=== PATIENT | male | born 1990 | race Caucasian/White ===

== ENCOUNTER 2021-07-23 17:30 | Observation (INO) | payer BC ==
--- OUTSIDE RECORDS SUMMARY | 2021-07-23 18:28 | XMS REPORT | Continuity of Care Document ---
:1990 Author Organization [facility] Address [address] [place] [address] Dr. Mclain [address] [place] [id number] Care Team Providers Name Role Phone THERESA Attending Clinician Unavailable AFTAB Attending Clinician Unavailable BILLY Attending Clinician Unavailable Payers Payer Name Policy Type Policy Number Effective Date Expiration Date Yony cavanaugh [employer]BST[employer] PPO [id number] 2019 00:00:00 Problems This patient has no known problems. Allergies, Adverse Reactions, Alerts This patient has no known allergies or adverse reactions. Medications This patient has no known medications. Procedures This patient has no known procedures. Encounters Start End Encounter Admission Attending Care Care Encounter Source Date/Time Date/Time Type Type Clinicians Facility Department ID 2021-06-14 Outpatient THERESA [facility] [id number] [place] 01:04:25 [facility] 2021-04-05 Outpatient [facility] [id number] [place] 08:07:38 [facility] 2021-03-29 Outpatient [facility] [id number] [place] 09:51:44 [facility] 2021-03-27 [facility] [id number] [place]:35 [facility] 2021-03-26 Outpatient [facility] [id number] [place] 10:18:23 [facility] 2021-03-26 [facility] [id number] [place] 08:27:29 [facility] 2021-03-26 [facility] [id number] [place] 08:10:41 [facility] Results This patient has no known results.
[2021-07-23] MEDS ORDERED: MORPHINE 2 MG/ML SYR IV PRN (18:43)
[2021-07-23] MEDS ORDERED: ONDANSETRON 4 MG/2 ML VIAL IV PRN (18:43)
[2021-07-23] MEDS: NA CHLORIDE 0.9% 1,000 ML IV SCH (19:51)
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
[2021-07-23 21:52] LABS: Urine Appearance CLEAR (Clear); Urine Bilirubin NEGATIVE (Negative); Urine Blood NEGATIVE (Negative); Urine Color YELLOW (Yellow); Urine Glucose NEGATIVE (Negative); Urine Protein NEGATIVE (Negative); Urine Specific Gravity >=1.030 (1.005-1.030); Urine Urobilinogen 0.2 mg/dL (0.2-1.0); Urine pH 7.5 (5.0-7.0)
[2021-07-23 21:55] LABS: Urine Microscopic Reflex NO UMIC
[2021-07-24] MEDS: PIPER TAZO 3.375 GM in NA CHLORIDE 0.9% 100 ML IV SCH ×3 (00:02→16:26)
[2021-07-24 00:56] VITALS: BMI 28.7
[2021-07-24] MEDS: NA CHLORIDE 0.9% 1,000 ML IV SCH ×2 (05:31→15:48)
[2021-07-24 06:10] LABS: Absolute Lymphocytes (CBC) 1.7 K/uL (0.7-4.9); Hematocrit 42.8 % (39.6-49.0); Lymphocytes % 17.7 % (15.3-44.8); MPV 7.3 fL (7.6-11.3); RBC Red Blood Cell Count 4.44 M/uL (4.33-5.43)
--- NOTE | 2021-07-24 06:26 | P.PN ---
Date of Service: 07/24/21 Subjective: Patient seen postoperatively Reports doing well, some mild soreness/discomfort into the abdomen No nausea/vomiting, tolerated p.o. Passing flatus, urinating without issue No shortness of breath ROS: 10 point ROS as noted above, otherwise negative Physical exam GEN: Alert, oriented, NAD HEENT: Normal conjunctiva, sclera anicteric CV: Regular rate and rhythm, no edema Pulm: Nonlabored respirations on room air ABD: Soft, minimal discomfort with palpation, surgical dressing C/C/I Neuro: Normal speech, normal affect Problem List acute calculus cholecystitis Enteritis Admitted to general surgery, s/p lap cholecystectomy this morning Pain control and antibiotics per surgery Seems to be doing well postoperatively Vitals stable DVT PPx: lovenox Code: Full Dispo: Anticipate DC in the next 1-2 days Time Spent Managing Pts Care (In Minutes): 25
[2021-07-24 06:35] LABS: Albumin 3.4 g/dL (3.4-5.0); Bilirubin Total 0.5 mg/dL (0.2-1.0); Potassium 4.2 mmol/L (3.5-5.1)
[2021-07-24] MEDS ORDERED: Ringers Lactate 1,000 ML IV ONE ×2 (07:49→11:13)
[2021-07-24] MEDS ORDERED: INFLUENZA VACCINE (for 6+ mo) 0.5 ML DOSE IMVAC ONE (08:00)
[2021-07-24] MEDS ORDERED: PNEUMOCOCCAL VACCINE 0.5 ML IMVAC ONE (08:00)
[2021-07-24] MEDS ORDERED: propofoL 200 MG/20 ML VIAL IV ONE (08:26)
[2021-07-24] MEDS ORDERED: FENTANYL CITR 250 MCG/5 ML ONE (08:27)
[2021-07-24] MEDS ORDERED: MIDAZOLAM HCL 2 MG/2 ML INJ ONE (08:27)
[2021-07-24] MEDS ORDERED: ROCURONIUM 50 MG/5 ML VIAL IV ONE (08:27)
[2021-07-24] MEDS ORDERED: dexAMETHasone 10 MG/ML VIAL ONE (08:27)
[2021-07-24] MEDS ORDERED: ONDANSETRON 4 MG/2 ML VIAL ONE ×2 (08:28→11:27)
[2021-07-24] MEDS ORDERED: BUPIVACAINE 0.25% PF 10 ML VIAL ONE (08:35)
[2021-07-24] MEDS ORDERED: KETOROLAC 30 MG/ML INJ ONE (10:01)
[2021-07-24] MEDS ORDERED: GLYCOPYRROLATE 0.2 MG/ML SYR ONE (10:03)
[2021-07-24] MEDS ORDERED: EPHEDRINE SULF 50 MG/ML VIAL ONE (10:07)
[2021-07-24] MEDS ORDERED: Phenylephrine HCl 10 MG/ML 1 ML VIAL ONE (10:08)
--- NOTE | 2021-07-24 10:44 | P.OP ---
Preoperative diagnosis: Acute cholecystitis Postoperative diagnosis: Acute cholecystitis Primary procedure: Laparoscopic cholecystectomy Secondary procedure: ICG cholangiography Other procedure(s): Peritoneal washings with biopsy Anesthesia: GETA Estimated blood loss: <10cc Specimen: Gallbadder, Peritoneal Fluid Findings: Significant white fluid in abdomen, did't appear to be abscess, lymphatic ? Complications: None Transferred to: Recovery Room Condition: Good
[2021-07-24] MEDS: HYDROMORPHONE HCL 1 MG/ML INJ ONE ×2 (11:25→11:45)
[2021-07-24] MEDS ORDERED: HYDROCODONE/APAP 5/325 MG TAB PO PRN (11:45)
--- NOTE | 2021-07-24 14:00 | OP ---
Date of Procedure: 07/24/2021 Surgeon: Rich Alejandra MD, Preoperative Diagnosis: Acute calculous cholecystitis. Postoperative Diagnosis: Acute calculous cholecystitis. Procedures Performed: 1.Laparoscopic cholecystectomy. 2.Indocyanine green cholangiography intraoperatively. 3.Peritoneal washings with biopsy. Anesthesia: General endotracheal plus local with 0.25% Marcaine. Estimated Blood Loss: Less than 10 cc. Specimen: Gallbladder and peritoneal fluid. Findings: Significant white fluid evident in the peritoneum concerning for a possible lymph leak. D id not appear abscess in origin in etiology. Bright white sterile in appearance throughout the entir e abdominal compartment and covering many segments of small bowel. Complications: None. Disposition: Patient was transferred to recovery room in good condition. Procedure In Detail: After informed consent was obtained, patient was brought to the operating room, prepped and draped in the usual sterile fashion. After adequate anesthesia was achieved, an area of the supraumbilical skin was anesthetized with 0.25% Marcaine, sharply incised. A 5 mm 0-degree opti meghan trocar was introduced in the abdomen without complication. Insufflation obtained to 15 mmHg at t his time. There was no injury to vital structures upon entry into the abdomen. Patient was position ed in head up position. 2 additional trocars were placed, 1 in the epigastrium, 1 in the right upper quadrant. Both of these were similarly anesthetized and sharply incised. A 5 mm trocar was placed under direct visualization without complication. The umbilical trocar was then up-sized to 12 mm und er direct visualization without complication. The colon was noted to be tented over the anterior corey face of the gallbladder precluding visualization of the gallbladder. At this point, I had to take do wn the adhesions doing a laparoscopic adhesiolysis on the anterior surface of the liver edge to expos e the gallbladder. This was done using a combination of blunt dissection, electrocautery to remove t he transverse colon off the anterior surface of the liver, which is tended to the anterior abdominal wall from thick adhesive scars. Additional white murky fluid was evident throughout the abdominal co mpartment and particularly evident on many segments of small bowel with a significant accumulation of this murky fluid, which was bright white in appearance concerning for lymphocytic fluid in appearanc e. However, I turned my attention back to the gallbladder and after removing the omental attachments off the anterior surface of the gallbladder using a combination of electrocautery and blunt dissecti on, I continued to dissect down to expose the cystic duct and cystic artery. ICG cholangiography was performed after skeletonizing these 2 structures, identified as the cystic duct and cystic artery. I could see the confluence of the common duct, cystic duct junction and it was not within the dissect ion plane. As such, I opted to place a double titanium clips on the proximal side of both the cystic duct and cystic artery and singly on the distal side of cystic duct and cystic artery. The Endo She ars was then brought in and used to ligate the above 2 structures. The gallbladder was then removed from the hepatic fossa without evidence of complication, placed in EndoCatch bag, removed the umbilic al trocar. I inspected the hepatic fossa. Minimal hemostatic measures required. At this point, the clips were found to be in good anatomic position. At this point, I put a trap on and suctioned out some of the white murky fluid with minimal amount of irrigation from the right upper quadrant. I the n sent this off for pathologic examination, specimen analysis. At this point, I turned my attention to the abdomen. I irrigated and suctioned out the remainder of the murky fluid as much as possible a nd inspected the surgical field and found it to be clean without any additional maneuvers required. Patient was positioned back in a neutral position. Remaining fluid was suctioned out. The umbilical trocar site was removed and closed using a Ludwin-Laure suture passer with 0 Vicryl interrupted f ashion. Good approximation of tissues. The abdomen was then completely desufflated under direct vis ualization without complication. All skin incisions were copiously irrigated and closed with 4-0 Mon ocryl in a running fashion. Dermabond was placed over the top. Patient tolerated the procedure well without evidence of complication, transferred to PACU in good condition. All counts were correct at the end of the case. TK/MODL Voice ID: [id number] Report ID: [id number]
--- NOTE | 2021-07-24 14:55 | HP ---
Date of Admission: 07/23/2021 Brief History Of Present Illness: The patient is a 31-year-old male, who presented to the [place] [facility] with complaints of right upper quadrant pain, beginning earlier in the morning, got worse after eating. He has had several episodes before in the past, but never on this level of severity. He had a CT, which was positive for enteritis and an ultrasound that showed positive jovani cystitis at the ER in [facility]. He was ultimately transferred to [facility] level [facility] care as they had no surgical coverage at that point in the evening. I accepted the antonio hernandez in transfer. The patient states the pain got significantly better after being admitted to the hospital, continues to have some tenderness in the right upper quadrant. Past Medical History: Negative. Past Surgical History: He had a traumatic splenectomy performed through an exploratory laparotomy ab out [address] [facility]. Allergies: NO KNOWN DRUG ALLERGIES. Home Medications: None. Social History: He denies smoking, but does state no alcohol. No recreational drug use. Review of Systems: Ten-point review of systems other than HPI, denies. Physical Examination: General: At the time of my examination; he is awake, alert, and oriented. Psychiatric: Appropriate, conversive. HEENT: He is normocephalic. His sclerae are anicteric. Mucous members are moist. Oropharynx is cl ear. Neck: Supple without JVD. Chest: Normal expansion and excursion. Cardiovascular: Regular rate and rhythm. Pulmonary: Clear to auscultation bilaterally. Abdomen: Soft with positive right upper quadrant tenderness. Positive Reis. Positive guarding in the right upper quadrant. He has a well-healed midline surgical scar. The remainder of the abdomin al examination is unremarkable. Pelvis: Stable. Extremities: No clubbing, cyanosis, or edema. Skin: Warm and dry. Laboratory Data: Laboratory exam was reviewed and white blood cell count was 9.8, hemoglobin is 14.3 , hematocrit of 42.8, platelet count was 526. His neutrophils were 65%. His sodium 138, potassium 4 .2, chloride 107, carbon dioxide 27, BUN 10, creatinine 1.25, glucose was 87. His total bilirubin wa s 0.5, AST 35, ALT 43, alkaline phosphatase 78. His UA was essentially negative. He had imaging rep ort as described above. He had an ultrasound, which was concerning for acute cholecystitis performed at [facility]. He had a CT scan of the abdomen and pelvis, which was suspicious for enteritis with loops of bowel with inflammatory changes present. Assessment And Plan: This is a 31-year-old male, who comes in with right upper quadrant pain, tender ness, and ultrasound finding of acute cholecystitis with a CT finding of enteritis. I am unsure the etiology if the enteritis is secondary to the inflammatory change in the gallbladder or as a separate primary process/secondary process; however, I have explained the risks, benefits, and alternatives o f laparoscopic cholecystectomy with ICG cholangiography including, but not limited to bleeding, infec tion, damage to surrounding tissues, injury to bile ducts and intestines, need for further operation and procedures, trouble with injected material, and need for further operations and procedures as angela cribed. The patient agrees to proceed as indicated. We will give IV fluids, antibiotics, and pain m edications in the interim. He was scheduled for surgery. HALLIE/TOO Voice ID: [id number]
[2021-07-24 20:05] LABS: Appearance VERY TURBID (CLEAR); Body Fluid Source PERITONEAL; Body Fluid WBC 54 /mm^3; Color of fluid Pink (COLORLESS)
[2021-07-25] MEDS: NA CHLORIDE 0.9% 1,000 ML IV SCH (01:00)
[2021-07-25 01:55] VITALS: O2SAT 96
[2021-07-25 06:13] LABS: Albumin 3.2 g/dL (3.4-5.0); Bilirubin Total 0.4 mg/dL (0.2-1.0); Protein, Total 6.7 g/dL (6.4-8.2)
--- NOTE | 2021-07-25 06:23 | P.PN ---
Date of Service: 07/25/21 Subjective: Doing well, no acute events overnight Tolerating p.o. diet, urinating without issue Passing flatus, no BM Reports pain is minimal ROS: 10 point ROS as noted above, otherwise negative Physical exam GEN: Alert, oriented, NAD HEENT: Normal conjunctiva, sclera anicteric CV: Regular rate and rhythm, no edema Pulm: Nonlabored respirations on room air ABD: Soft, minimal discomfort with palpation, surgical incisions c/d/i Neuro: Normal speech, normal affect Problem List acute calculus cholecystitis Enteritis s/p lap cholecystectomy on 07/24 Overall seems to be doing well Further uncomplicated postoperative course Likely discharge later today, per general surgery Code: Full Dispo: anticipate dc home within 24 hours Time Spent Managing Pts Care (In Minutes): 25
[2021-07-25] MEDS: PIPER TAZO 3.375 GM in NA CHLORIDE 0.9% 100 ML IV SCH ×3 (09:18)
[2021-07-25 13:11] VITALS: BP 134/60; TEMP 97.9
[2021-07-28 20:37] LABS: GLUCOSE, PERITONEAL FLUID <10 mg/dL; LD, PERITONEAL FLUID REPORT; TOTAL PROTEIN,PERITONEAL FLUID <3.0 g/dL
== END 2021-07-25 13:48 | disposition home or self-care (01) ==
LOC: 2ND 18:25
PROVIDERS: ADMIT Surgery; ATTEND Surgery
PROC: 0FT44ZZ Resection of Gallbladder, Percutaneous Endoscopic Approach (ICD-10-PCS; principal; 2021-07-23)
PROC: BF53200 Other Imaging of Gallbladder and Bile Ducts using Fluorescing Agent, Indocyanine Green Dye, Intraoperative (ICD-10-PCS; 2021-07-23)
DX: K80.00 Calculus of gallbladder with acute cholecystitis without obstruction (principal); K52.9 Noninfective gastroenteritis and colitis, unspecified; Z82.3 Family history of stroke
CPT/HCPCS: 87070; 85025; 36415 ×2; 82150; 88108; 89050; 84478; 83615; 84157; 82945; 88304; 88305; 81003; 80053 ×2; 82042; 84311; 47562; J2704; J2370; J2543 ×5; J2250; J3010; J1100; J1170; G0378 ×4; J7120 ×2; J7030 ×2; J2405 ×2; G0379; C9776